=== PATIENT | female | born 1940 | race Caucasian/White ===

== ENCOUNTER 2016-07-14 12:55 | Outpatient (CLI) | payer MEDICARE | END 2016-07-14 12:56 | disposition home or self-care (01) | DX: M81.0 Age-related osteoporosis without current pathological fracture (principal) ==

== ENCOUNTER 2016-09-15 14:27 | Outpatient (CLI) | payer MEDICARE | END 2016-09-15 14:28 | disposition home or self-care (01) | LOC: RT.S 14:27 | PROVIDERS: ATTEND Family Medicine | DX: I25.10 Atherosclerotic heart disease of native coronary artery without angina pectoris (principal) | CPT/HCPCS: 93005 ==

== ENCOUNTER 2016-12-23 13:13 | Outpatient (CLI) | payer MEDICARE ==
--- NOTE | 2016-12-23 15:20 | XRAY Report ---
CHEST TWO VIEWS: 12/23/2016 CLINICAL HISTORY: Difficulty breathing. COMPARISON: 02/10/2015. FINDINGS: The heart size is normal. The lungs are clear. No pleural fluid or pneumothorax. Negative bony structures for age. The two tiny nodules seen on the prior chest CT are not appreciated on plain film. IMPRESSION: NEGATIVE TWO VIEW CHEST. JOB #: [id number] EXT JOB #:[id number]
== END 2016-12-23 13:14 | disposition home or self-care (01) ==
LOC: DI.S 13:13
PROVIDERS: ATTEND Family Medicine
DX: J44.9 Chronic obstructive pulmonary disease, unspecified (principal)
CPT/HCPCS: 71020

== ENCOUNTER 2017-04-26 10:20 | Outpatient (CLI) | payer MEDICARE ==
[2017-04-26 18:16] LABS: ALBUMIN 4.2 g/dL (3.2-5.5); ALBUMIN/GLOBULIN RATIO 1.3 (1.0-2.2); ALKALINE PHOSPHATASE 59 IU/L (42-121); ALT ALANINE AMINOTRANSFERASE 21 IU/L (10-60); AST ASPARTATE AMINOTRANSFERASE 27 IU/L (10-42); BILIRUBIN,TOTAL 0.7 mg/dL (0.2-1.0); BUN - BLOOD UREA NITROGEN 17 mg/dL (6-20); CALCIUM 8.9 mg/dL (8.5-10.3); CARBON DIOXIDE - CO2 26 mmol/L (21-32); CHLORIDE 104 mmol/L (101-111); CHOL/HDL RATIO 3.1 (<4.4); CHOLESTEROL 126 mg/dL; CREATININE 0.9 mg/dL (0.4-1.0); GFR - MDRD 61 (>89); GLUCOSE 100 mg/dL (70-100); HDL CHOLESTEROL 41 mg/dL; LDL CHOLESTEROL,CALCULATED 58 mg/dL; LDL/HDL RATIO 1.4 (<4.4); SODIUM 137 mmol/L (135-145); TOTAL PROTEIN 7.4 g/dL (6.7-8.2); VLDL CHOLESTEROL 27 mg/dL
== END 2017-04-26 10:21 | disposition home or self-care (01) ==
LOC: LAB.F 10:20
PROVIDERS: ATTEND Family Medicine
DX: I25.10 Atherosclerotic heart disease of native coronary artery without angina pectoris (principal); I10 Essential (primary) hypertension; I50.9 Heart failure, unspecified; E55.9 Vitamin D deficiency, unspecified; E78.5 Hyperlipidemia, unspecified
CPT/HCPCS: 36415; 80053; 80061; 82306; 83721

== ENCOUNTER 2017-06-16 12:22 | Outpatient (CLI) | payer MEDICARE ==
--- NOTE | 2017-06-16 15:24 | XRAY Report ---
LUMBAR SPINE: 06/16/2017 COMPARISON: Thoracic spine CT 02/10/2015. INDICATION: Lumbar back pain. TECHNIQUE: Three views. FINDINGS: There is mild lateral curvature of the lumbar spine. Stable finding. There is mild disk space narrowing at L1-L2. There is a large Schmorl's node of the superior endplate of L2. There are moderate osteophytes at that level. Minimal retrolisthesis of L1 upon L2 is favored to be degenerative. Alignment otherwise anatomic. No acute bone findings. There are moderate degenerative changes of lower facets. IMPRESSION: MILD TO MODERATE LUMBAR SPONDYLOSIS, WITH AN UNCHANGED APPEARANCE OF L2 HAVING A LARGE SUPERIOR ENDPLATE SCHMORL'S NODE AND ASSOCIATED MILD TO MODERATE DEGENERATIVE CHANGES AT L1-L2. TD: 06/16/2017 15:24 MTDD
== END 2017-06-16 12:23 | disposition home or self-care (01) ==
LOC: DI.S 12:22
PROVIDERS: ATTEND Nurse Practitioner Family
DX: M54.5 Low back pain (principal); M47.896 Other spondylosis, lumbar region; M51.46 Schmorl's nodes, lumbar region
CPT/HCPCS: 72100

== ENCOUNTER 2017-10-07 12:50 | Outpatient (CLI) | payer MEDICARE ==
--- NOTE | 2017-10-08 12:41 | MRI Report ---
Procedure Date: 10/07/2017 Accession Number: [id number] / [id number] Procedure: MRI - Lumbar Spine W/O CPT Code: FULL RESULT: EXAM: MRI LUMBAR SPINE WITHOUT CONTRAST EXAM DATE: 10/07/2017 01:59 PM. CLINICAL HISTORY: Back pain, lumbar. COMPARISON: 06/06/2017 lumbar spine radiographs. TECHNIQUE: Multiplanar, multisequence T1-weighted and fluid-sensitive sequences of the lumbar spine from T12 to S1 without contrast. Other: None. FINDINGS: Spinal Cord: The conus terminates at T12. The conus medullaris and cauda equina are unremarkable. Alignment: Anterolisthesis of L4 on L5 measures 3 mm. Sagittal alignment is otherwise anatomic. Lumbar levoscoliosis is incompletely evaluated on the director of philanthropy images. Bone Marrow: Five dzz-nzi-gobfgwn lumbar vertebral bodies are assumed. There is no evidence of acute fracture. Central depression of the superior endplate of L2 appears chronic and may reflect a large Schmorl's node or chronic superior endplate fracture. There is Modic type I endplate degenerative change at the anterior margin of T12-L1. There is an intraosseous hemangioma within the L3 vertebral body. Marrow signal is otherwise normal. Disk Levels/Facets: T12-L1: Disk desiccation without disk height loss. Shallow broad-based disk bulge. No spinal canal or foraminal stenosis. L1-L2: Disk desiccation without disk height loss. Shallow left foraminal disk protrusion results in mild left foraminal stenosis without spinal canal or right foraminal stenosis. L2-L3: Disk desiccation without disk height loss. A shallow broad-based disk bulge with superimposed left foraminal disk protrusion and moderate facet arthropathy results in narrowing of the lateral recesses and mild left foraminal stenosis. No spinal canal stenosis. L3-L4: Disk desiccation without disk height loss. A shallow broad-based disk bulge and severe bilateral facet arthropathy results in moderate spinal canal and bilateral foraminal stenosis. There is subchondral marrow edema and pericapsular edema at the bilateral facets. L4-L5: Disk desiccation without disk height loss. There is a broad-based disk bulge and severe facet arthropathy resulting in moderate spinal canal and bilateral foraminal stenosis. There is subchondral marrow edema and pericapsular edema at the bilateral facets, left greater than right. L5-S1: No disk bulge or protrusion. Moderate facet arthropathy. No spinal canal or foraminal stenosis. Musculature: Normal. No edema or fatty atrophy. Other: The partially visualized retroperitoneum is unremarkable. IMPRESSION: 1. Shallow broad-based disk bulges and severe facet arthropathy at L3-L4 and L4-L5 result in moderate spinal canal and bilateral foraminal stenosis. Facet arthropathy at these levels is also associated with subchondral marrow edema and pericapsular edema, left greater than right. 2. Shallow left foraminal disk protrusions at L1-L2 and L2-L3 result in mild left foraminal stenosis without spinal canal stenosis. Comment: The following findings are so common in adults without low back pain that while we report their presence, they must be interpreted with caution and in the context of the clinical situation. (Reference Marcelk et al, Spine 2001) Prevalence of findings in patients without low back pain: Disk degeneration (any evidence): 92% Disk desiccation/T2 signal loss: 83% Disk height loss: 56% Disk bulge: 64% Disk protrusion: 32% Annular tear/high intensity zone: 38% RADIA
== END 2017-10-07 12:51 | disposition home or self-care (01) ==
LOC: DI 12:50
PROVIDERS: ATTEND Family Medicine
DX: M51.26 Other intervertebral disc displacement, lumbar region (principal)
CPT/HCPCS: 72148

== ENCOUNTER 2018-04-16 08:00 | Outpatient (CLI) | payer MEDICARE ==
[2018-04-16 18:15] LABS: BASOPHILS % (AUTO) 0.2 %; EOSINOPHILS # (AUTO) 0.1 10^3/uL (0.0-0.7); EOSINOPHILS % (AUTO) 1.9 %; HGB - HEMOGLOBIN 13.4 g/dL (12.0-16.0); LYMPHOCYTES # (AUTO) 1.8 10^3/uL (1.5-3.5); LYMPHOCYTES % (AUTO) 35.3 %; MEAN CORPUSCULAR HEMOGLOBIN 29.2 pg (27.0-31.0); MEAN CORPUSCULAR HGB CONC 32.8 g/dL (32.0-36.0); MEAN CORPUSCULAR VOLUME 89.3 fL (81.0-99.0); MEAN PLATELET VOLUME 9.6 fL (7.9-10.8); MONOCYTES # (AUTO) 0.4 10^3/uL (0.0-1.0); MONOCYTES % (AUTO) 7.9 %; NEUTROPHILS # (AUTO) 2.8 10^3/uL (1.5-6.6); NEUTROPHILS % (AUTO) 54.7 %; PLT - PLATELET COUNT 288 10^3/uL (130-450); RED BLOOD COUNT 4.57 10^6/uL (4.20-5.40); RED CELL DISTRIBUTION WIDTH 13.2 % (12.0-15.0)
[2018-04-16 18:28] LABS: HB2 TOTAL 14.1 g/dL; HEMOGLOBIN A1C 0.52 g/dL; HEMOGLOBIN A1C % 5.5 % (4.6-6.2)
[2018-04-16 18:49] LABS: ALBUMIN 4.2 g/dL (3.2-5.5); ALBUMIN/GLOBULIN RATIO 1.4 (1.0-2.2); ALKALINE PHOSPHATASE 69 IU/L (42-121); ALT ALANINE AMINOTRANSFERASE 25 IU/L (10-60); AST ASPARTATE AMINOTRANSFERASE 27 IU/L (10-42); BILIRUBIN,TOTAL 0.8 mg/dL (0.2-1.0); BUN - BLOOD UREA NITROGEN 15 mg/dL (6-20); CALCIUM 9.1 mg/dL (8.5-10.3); CARBON DIOXIDE - CO2 26 mmol/L (21-32); CHLORIDE 103 mmol/L (101-111); CHOLESTEROL 132 mg/dL; CREATININE 0.8 mg/dL (0.4-1.0); GFR - MDRD 70 (>89); GLUCOSE 97 mg/dL (70-100); HDL CHOLESTEROL 44 mg/dL; LDL CHOLESTEROL,CALCULATED 67 mg/dL; LDL/HDL RATIO 1.5 (<4.4); SODIUM 140 mmol/L (135-145); TOTAL PROTEIN 7.1 g/dL (6.7-8.2); VLDL CHOLESTEROL 21 mg/dL
== END 2018-04-16 23:59 | disposition home or self-care (01) ==
LOC: LAB.S 08:00
PROVIDERS: ATTEND Nurse Practitioner
DX: Z13.9 Encounter for screening, unspecified (principal); J44.9 Chronic obstructive pulmonary disease, unspecified; M81.0 Age-related osteoporosis without current pathological fracture; I11.0 Hypertensive heart disease with heart failure; I50.9 Heart failure, unspecified; I25.10 Atherosclerotic heart disease of native coronary artery without angina pectoris
CPT/HCPCS: 36415; 80053; 80061; 83036; 83721; 84443; 85025

== ENCOUNTER 2018-08-13 08:00 | Outpatient (CLI) | payer MEDICARE | END 2018-08-13 23:59 | disposition home or self-care (01) | LOC: LAB.S 08:00 | PROVIDERS: ATTEND Nurse Practitioner | DX: F33.9 Major depressive disorder, recurrent, unspecified (principal) | CPT/HCPCS: 36415; 82306 ==

== ENCOUNTER 2018-08-16 13:07 | Outpatient (CLI) | payer MEDICARE ==
--- NOTE | 2018-08-17 08:12 | DEXA Report ---
Reason: ASYMPTOMATIC MENOPAUSAL STATE,OSTEOPOROSIS NOS Procedure Date: 08/16/2018 Accession Number: [id number] / [id number] Procedure: DEX - Dexa Spine and/or Hip CPT Code: FULL RESULT: EXAM: Dexa Spine and/or Hip DATE: 08/16/2018 1:51 PM CLINICAL HISTORY: ASYMPTOMATIC MENOPAUSAL State, osteoporosis NOS TECHNIQUE: Dual energy x-ray absorptiometry (DXA) was performed on a [employer] System. Regions measured are the AP Spine, femoral neck, and if needed forearm. COMPARISON: 07/14/2016. In accordance with the International Society for Clinical Densitometry (ISCD) guidelines, data from previous exams may be reanalyzed using current recommendations and techniques. This is done to allow a more accurate basis for comparison with the current study. FINDINGS: The data for the lumbar spine is as follows: BMD (g/cm/cm) T-SCORE Z-SCORE REGION L1 0.882 -2.1 -0.2 L2 0.847 -2.9 -1.1 L3 0.898 -2.5 -0.6 L4 1.159 -0.3 1.5 *excluded due to osteophytosis TOTAL L1-L3 0.876 -2.5 -0.6 NOTE: All evaluable vertebrae are used for classification The data for the hip is as follows: BMD (g/cm/cm) T-SCORE Z-SCORE REGION Neck 0.724 -2.3 -0.2 TOTAL 0.735 -2.2 -0.3 NOTE: The femoral neck or total proximal femur, whichever is lowest, is used for classification. DXA RESULTS SUMMARY: Spine SCAN DATE AGE BMD CHANGE VS CHANGE VS PREVIOUS PREVIOUS % 08/16/2018 78.4 0.876 -0.158* -16.0* 07/14/2016 76.3 1.034 * Denotes significant change at the 95% confidence level. Denotes dissimilar scan types or analysis methods. DXA RESULTS SUMMARY: Hip SCAN DATE AGE BMD CHANGE VS CHANGE VS PREVIOUS PREVIOUS % 08[age]16/2018 76.4 0.735 -0.005 -0.7 07/14/2016 76.3 0.740 * Denotes significant change at the 95% confidence level. Denotes dissimilar scan types or analysis methods. IMPRESSION: THE WHO CLASSIFICATION BASED ON THE INTERNATIONAL REFERENCE STANDARD IS OSTEOPOROSIS. THE FRACTURE RISK IS HIGH. RECOMMENDATION: Patients with diagnosis of osteoporosis or osteopenia should have regular bone mineral density assessment. For those eligible for Medicare, routine testing is allowed once every 2 years. Testing frequency can be increased for patients who have rapidly progressing disease or for those who are receiving medical therapy to restore bone mass. COMMENT: World Health Organization (WHO) definitions for osteoporosis and osteopenia: NORMAL BMD: T-score at -1.0 or higher, fracture risk is low OSTEOPENIA BMD: T-score between -1.0 and -2.5, fracture risk is increased. OSTEOPOROSIS BMD: T-score at -2.5 or lower, fracture risk is high. National Osteoporosis Foundation recommends: 1. Obtain adequate dietary calcium (at least 1200 mg per day) and vitamin D (400-800 international units per day). 2. Participate, as appropriate, in regular weightbearing and muscle-strengthening exercise. 3. Avoid tobacco use and reduce alcohol and caffeine intake. 4. For more detailed information see the website at www.NOF.org.
== END 2018-08-16 13:08 | disposition home or self-care (01) ==
LOC: DI 13:07
PROVIDERS: ATTEND Nurse Practitioner
DX: M81.0 Age-related osteoporosis without current pathological fracture (principal); Z78.0 Asymptomatic menopausal state
CPT/HCPCS: 77080

== ENCOUNTER 2019-03-25 08:00 | Outpatient (CLI) | payer MEDICARE | END 2019-03-25 23:59 | disposition home or self-care (01) | LOC: LAB.R 08:00 | PROVIDERS: ATTEND Registered Nurse | DX: J02.9 Acute pharyngitis, unspecified (principal); B37.9 Candidiasis, unspecified | CPT/HCPCS: 87070 ==

== ENCOUNTER 2019-08-01 11:30 | Outpatient (CLI) | payer MEDICARE ==
[2019-08-01 11:48] LABS: BASOPHILS % (AUTO) 0.2 %; EOSINOPHILS # (AUTO) 0.1 10^3/uL (0.0-0.7); HGB - HEMOGLOBIN 12.9 g/dL (12.0-16.0); LYMPHOCYTES # (AUTO) 1.3 10^3/uL (1.5-3.5); LYMPHOCYTES % (AUTO) 29.6 %; MEAN CORPUSCULAR HEMOGLOBIN 28.8 pg (27.0-31.0); MEAN CORPUSCULAR HGB CONC 31.9 g/dL (32.0-36.0); MEAN CORPUSCULAR VOLUME 90.4 fL (81.0-99.0); MONOCYTES # (AUTO) 0.4 10^3/uL (0.0-1.0); MONOCYTES % (AUTO) 8.6 %; NEUTROPHILS # (AUTO) 2.7 10^3/uL (1.5-6.6); NEUTROPHILS % (AUTO) 59.4 %; PLT - PLATELET COUNT 268 10^3/uL (130-450); RED BLOOD COUNT 4.48 10^6/uL (4.20-5.40); RED CELL DISTRIBUTION WIDTH 12.6 % (12.0-15.0); WHITE BLOOD COUNT 4.5 x10^3/uL (4.8-10.8)
[2019-08-01 12:05] LABS: ALBUMIN 4.2 g/dL (3.2-5.5); ALBUMIN/GLOBULIN RATIO 1.4 (1.0-2.2); ALKALINE PHOSPHATASE 55 IU/L (42-121); ALT ALANINE AMINOTRANSFERASE 18 IU/L (10-60); AST ASPARTATE AMINOTRANSFERASE 21 IU/L (10-42); BILIRUBIN,TOTAL 0.9 mg/dL (0.2-1.0); BUN - BLOOD UREA NITROGEN 15 mg/dL (6-20); CALCIUM 8.8 mg/dL (8.5-10.3); CARBON DIOXIDE - CO2 27 mmol/L (21-32); CHLORIDE 106 mmol/L (101-111); CHOL/HDL RATIO 3.2 (<4.4); CHOLESTEROL 129 mg/dL; GLUCOSE 106 mg/dL (70-100); HB2 TOTAL 13.9 g/dL; HDL CHOLESTEROL 40 mg/dL; HEMOGLOBIN A1C 0.56 g/dL; HEMOGLOBIN A1C % 5.8 % (4.6-6.2); LDL CHOLESTEROL,CALCULATED 68 mg/dL; LDL/HDL RATIO 1.7 (<4.4); SODIUM 140 mmol/L (135-145); TOTAL PROTEIN 7.1 g/dL (6.7-8.2); VLDL CHOLESTEROL 21 mg/dL
== END 2019-08-01 11:31 | disposition home or self-care (01) ==
LOC: LAB 11:30
PROVIDERS: ATTEND Registered Nurse
DX: E78.5 Hyperlipidemia, unspecified (principal); I50.9 Heart failure, unspecified; I11.0 Hypertensive heart disease with heart failure
CPT/HCPCS: 36415; 80053; 80061; 83036; 83721; 84443; 85025

== ENCOUNTER 2019-10-23 07:10 | Outpatient (CLI) | payer MEDICARE ==
--- NOTE | 2019-10-23 10:01 | Ultrasound Report ---
PROCEDURE: Abdomen Complete INDICATIONS: ABD PAIN TECHNIQUE: Real-time scanning was performed of the abdominal and retroperitoneal organs, with image documentatio n. COMPARISON: None. FINDINGS: Liver: Liver is normal in size and mildly hyperechoic in echotexture. Gallbladder: The gallbladder contains single 1 cm mobile stone. The wall is normal at 2.1 mm. No mark cholecystic fluid or sonographic Castro sign. Biliary ducts: Intrahepatic bile ducts are non-dilated. Extrahepatic bile duct caliber measures 7.5 mm. Normal is 6-7 mm or less in diameter, or 10 mm or less post-cholecystectomy. Pancreas: Visualized portions of the pancreas are sonographically normal. Spleen: Spleen is normal in size and homogeneous in echotexture. Kidneys: Kidneys are normal in size and echotexture. Right kidney measures 9.4 cm long; left kidney measures 10.7 cm long. 9 mm right lateral cortical cyst present. No hydronephrosis or nephrolithias is. No solid masses. Aorta: Visualized aorta is normal in caliber at less than 3 cm. Mild luminal irregularities secondar y to atherosclerosis. Iliacs: Proximal common iliac arteries are normal in caliber at less than 2.5 cm. IVC: Intrahepatic inferior vena cava is patent. Miscellaneous: No free abdominal fluid. IMPRESSION: 1. Cholelithiasis. 2. Minor hepatic steatosis or other intrinsic liver disease. Reviewed by: Annie Lisa MD on 10/23/2019 9:59 AM PDT Approved by: Annie Lisa MD on 10/23/2019 9:59 AM PDT Station ID: [id number]
--- NOTE | 2019-10-23 17:41 | XRAY Report ---
PROCEDURE: Chest 2 View X-Ray INDICATIONS: LUNG NODULE,BACK PAIN,THORACIC REGION TECHNIQUE: 2 view(s) of the chest. COMPARISON: 2 view chest x-ray 10/22/2016. CT chest 02/10/2015 FINDINGS: Surgical changes and devices: None. Lungs and pleura: No pleural effusions or pneumothorax. Lungs are clear. Previously identified nodu les in the right lower lobe are not identified by plain from radiograph. Mediastinum: Mediastinal contours are normal. Heart size is normal. Bones and chest wall: No suspicious bony abnormalities. Soft tissues appear unremarkable. IMPRESSION: 1. No acute cardiopulmonary disease process. 2. Previously identified right lower lobe pulmonary nodules not identified. Consider CT scan for furt her evaluation. Reviewed by: Sada Hernadez MD, PhD on 10/23/2019 5:40 PM PDT Approved by: Sada Hernadez MD, PhD on 10/23/2019 5:40 PM PDT Station ID: [id number]
--- NOTE | 2019-10-23 17:43 | XRAY Report ---
PROCEDURE: Thoracic Spine 3 View INDICATIONS: LUNG NODULE,BACK PAIN,THORACIC REGION TECHNIQUE: 3 views of the thoracic spine were acquired. COMPARISON: None. FINDINGS: Bones: No fractures or dislocations. No suspicious bony lesions. 12 pairs of ribs are noted, and a ppear intact where visualized. S-shaped scoliosis of the thoracolumbar spine is noted with convex rig ht thoracic spine curvature. Moderate degenerative changes noted throughout the thoracic spine. Soft tissues: No paravertebral stripe thickening. IMPRESSION: 1. Moderate multilevel degenerative disc disease. 2. S-shaped scoliosis. 3. No fracture. No acute osseous lesion. If there is continued clinical concern for pathology, then M RI should be considered for further evaluation. Reviewed by: Sada Hernadez MD, PhD on 10/23/2019 5:41 PM PDT Approved by: Sada Hernadez MD, PhD on 10/23/2019 5:41 PM PDT Station ID: [id number]
== END 2019-10-23 07:11 | disposition home or self-care (01) ==
LOC: DI 07:10
PROVIDERS: ATTEND Family Medicine
DX: R91.8 Other nonspecific abnormal finding of lung field (principal); M51.34 Other intervertebral disc degeneration, thoracic region; K80.20 Calculus of gallbladder without cholecystitis without obstruction; K76.0 Fatty (change of) liver, not elsewhere classified
CPT/HCPCS: 71046; 72072; 76700

== ENCOUNTER 2019-11-22 13:22 | Outpatient (CLI) | payer MEDICARE | END 2019-11-22 13:23 | disposition home or self-care (01) | LOC: COV 13:22 | PROVIDERS: ATTEND Surgery | DX: Z01.818 Encounter for other preprocedural examination (principal); K80.20 Calculus of gallbladder without cholecystitis without obstruction; Z20.828 Contact with and (suspected) exposure to other viral communicable diseases ==

== ENCOUNTER 2019-11-26 07:43 | Day surgery (SDC) | payer MEDICARE ==
[2019-11-26] MEDS ORDERED: LACTATED RINGERS 1,000 ML IV ONE ×2 (07:48→10:40)
[2019-11-26] MEDS ORDERED: CEFAZOLIN SODIUM IN 0.9 % NACL 2 GM/100 ML BAG IV ONE (07:55)
--- NOTE | 2019-11-26 08:24 | ANESTHESIA ---
Pre-Anesthesia VS, & Labs - Diagnosis Cholelithiasis - Procedure Cholecystectomy Vital Signs: Temp Pulse Resp BP Pulse Ox 36.4 C L 85 18 156/68 H 99 11/26/19 08:03 11/26/19 08:03 11/26/19 08:03 11/26/19 08:03 11/26/19 08:03 Height 5 ft 5 in Weight (kg) 64.2 kg Body Mass Index 24.6 - Is Patient ?: No Home Medications and Allergies Home Medications: Ambulatory Orders ALPRAZolam [Alprazolam] 0.25 mg PO Q4HR PRN 11/20/19 Alendronate Sodium 70 mg PO OAW 11/20/19 Aspirin [Aspirin EC] 81 mg PO DAILY 11/20/19 Calcium Carbonate [Elemental Calcium] 600 mg PO BID 11/20/19 Cholecalciferol (Vitamin D3) [Vitamin D3] 50 mcg PO BID 11/20/19 Escitalopram [Lexapro] 20 mg PO DAILY 11/20/19 Losartan Potassium 25 mg PO DAILY 11/20/19 NIFEdipine [Nifedipine ER] 60 mg PO DAILY 11/20/19 Rosuvastatin Calcium 10 mg PO QPM 11/20/19 ALPRAZolam [Alprazolam] 0.25 mg PO Q4HR PRN 11/20/19 Alendronate Sodium 70 mg PO OAW 11/20/19 Aspirin [Aspirin EC] 81 mg PO DAILY 11/20/19 Calcium Carbonate [Elemental Calcium] 600 mg PO BID 11/20/19 Cholecalciferol (Vitamin D3) [Vitamin D3] 50 mcg PO BID 11/20/19 Escitalopram [Lexapro] 20 mg PO DAILY 11/20/19 Losartan Potassium 25 mg PO DAILY 11/20/19 NIFEdipine [Nifedipine ER] 60 mg PO DAILY 11/20/19 Rosuvastatin Calcium 10 mg PO QPM 11/20/19 Allergies/Adverse Reactions: Allergies Allergy/AdvReac Type Severity Reaction Status Date / Time Penicillins Allergy Rash Verified 11/20/19 10:42 Anes History & Medical History - Anesthetic History Anesthesia Complications: reports: No previous complications Family history of Anesthesia Complications: Denies Family history of Malignant Hyperthermia: Denies - Medical History Cardiovascular: reports: Hypertension, High cholesterol, Coronary artery disease Pulmonary: reports: None Gastrointestinal: reports: None Urinary: reports: Frequency Neuro: reports: None Musculoskeletal: reports: Osteoarthritis, Scoliosis, Chronic back pain Endocrine/Autoimmune: reports: None Skin: reports: None - Surgical History General: Other Cardiothoracic: Coronary stent, Cardiac catheterization Urologic: Bladder surgery Gynecologic: Hysterectomy Exam General: Alert, Oriented x3, Cooperative, No acute distress Dental: Dentures full Upper, Partials Lower Mouth Opening: Greater than 4 Fingerbreadths Neck Mobility: Normal Mallampati classification: II Thyromental Distance: 4-6 cm Respiratory: Lungs clear, Normal breath sounds, No respiratory distress Cardiovascular: Regular rate, Normal S1, Normal S2, No murmurs Mental/Cognitive Status: Alert/Oriented X3, Normal for patient Plan Anesthesia Type: General Consent for Procedure(s) Verified and Reviewed: Yes Code Status: Attempt Resuscitation ASA classification: 3-Severe systemic disease Is this case an emergency?: No
[2019-11-26] MEDS ORDERED: ONDANSETRON 4 MG/2 ML VIAL IVP PRN ×2 (08:27→10:57)
[2019-11-26] MEDS ORDERED: NALOXONE 0.4 MG/ML VIAL IVP PRN (08:27)
[2019-11-26] MEDS ORDERED: HYDROmorphone 0.5 MG/0.5 ML SYRINGE IVP PRN (08:27)
[2019-11-26] MEDS ORDERED: fentaNYL 100 MCG/2 ML VIAL IVP PRN (08:27)
[2019-11-26] MEDS ORDERED: ATROPINE ABBOJECT 1 MG/10 ML SYRINGE IVP PRN (08:27)
[2019-11-26] MEDS ORDERED: ePHEDrine 50 MG/ML VIAL IVP PRN (08:27)
[2019-11-26] MEDS ORDERED: LACTATED RINGERS 1,000 ML IV SCH (09:00)
[2019-11-26] MEDS ORDERED: BUPIVACAINE 0.25% PF 30 ML VIAL ONE (09:01)
[2019-11-26] MEDS ORDERED: ROCURONIUM 50 MG/5 ML VIAL IVP ONE (09:15)
[2019-11-26] MEDS ORDERED: ONDANSETRON 4 MG/2 ML VIAL IVP ONE (09:15)
[2019-11-26] MEDS ORDERED: MIDAZOLAM 2 MG/2 ML VIAL IVP ONE (09:15)
[2019-11-26] MEDS ORDERED: PROPOFOL 200 MG/20 ML VIAL IVP ONE (09:15)
[2019-11-26] MEDS ORDERED: DEXAMETHASONE 4 MG/ML VIAL IVP ONE (09:15)
[2019-11-26] MEDS ORDERED: fentaNYL 100 MCG/2 ML VIAL IVP ONE (09:15)
[2019-11-26] MEDS ORDERED: LIDOCAINE-MPF 2% 5 ML VIAL IM ONE (09:15)
[2019-11-26] MEDS ORDERED: PHENYLEPHRINE 10 MG/ML VIAL IV ONE (09:15)
[2019-11-26] MEDS ORDERED: BUPIVACAINE 0.25% PF 30 ML VIAL SUBQ ONE (09:48)
[2019-11-26] MEDS ORDERED: SUGAMMADEX 200 MG/2 ML VIAL IVP ONE (10:15)
[2019-11-26] MEDS ORDERED: HYDROcod/ACETAM 5/325 MG TABLET PO PRN (10:57)
--- NOTE | 2019-11-26 12:14 | OPERATIVE REPORT ---
DATE OF SERVICE: 11/26/2019 Physician: Mayco Dow MD PREOPERATIVE DIAGNOSIS: Chronic cholecystitis. POSTOPERATIVE DIAGNOSIS: Chronic cholecystitis. PROCEDURE PERFORMED: Laparoscopic cholecystectomy. SURGEON: Mayco Dow MD [employer] ATTACHER: None. ANESTHESIA 1. General endotracheal anesthesia. 2. Local anesthesia with Marcaine. COMPLICATIONS: None. SPECIMEN: Gallbladder. ESTIMATED BLOOD LOSS: None. FINDINGS: Normal diameter common hepatic duct, which was easily evident without dissection. Healthy appearing liver. Hepatic flexure colon extends over the dome of the liver DRAINS: None. SPECIMENS: Gallbladder. COMPLICATIONS: None. INDICATIONS FOR PROCEDURE: Patient is an active 79-year-old lady with classic chronic cholecystitis. She has a single 1 cm gallstone. She has not had signs or symptoms of choledocholithiasis. Risks discussed, and alternatives discussed. All questions answered and consent obtained. DESCRIPTION OF PROCEDURE: Patient was properly identified and brought to the operating room and placed in supine position. She voided prior to surgery. General endotracheal anesthesia was induced. Sequential compression devices were placed. She was prepped and draped in a sterile fashion, given preoperative antibiotics. Local anesthetic was given to incision areas. An infraumbilical incision was made. Dissection proceeded down to the fascia. The fascia was incised, lifted upwards and abdomen entered with the Veress needle. CO2 was insufflated to a pressure of 15. An 11 mm trocar followed by a 30- degree scope was placed. There was no evidence of injury from Veress needle or trocar placement. Under direct vision, two 5 mm trocars were placed in the right upper quadrant and a 10 mm trocar was placed in the epigastrium. Body of the gallbladder was retracted anterior. The infundibulum and Maggie's pouch area was released of its peritoneal type attachments. She had a very long anterior cystic artery. This was clipped at the gallbladder, x2, slightly proximal and sharply divided. The infundibulum was then retracted right lateral and caudad. The anterior cystic artery was further peeled away from the cystic duct. With [place] dissector and no use of cautery, a large bare cystic plate area or window was created. A posterior cystic artery was identified. The cystic duct was clipped at the gallbladder and x3 slightly proximal and sharply divided. The posterior cystic artery was clipped at the gallbladder and x2, slightly proximal and sharply divided. The gallbladder was mobilized off from the bed of the liver. There was scant spillage of bile; however, no spillage of stone material. Very small tubular structure towards the fundus of the gallbladder was clipped and divided with cautery. The gallbladder was placed in an EndoCatch bag and brought out. Hemostasis was assured. Clips were secured. The abdomen was thoroughly irrigated. Trocars were removed under direct vision and CO2 evacuated. Fascia at the infraumbilical site was closed with a running 0 Vicryl suture. Fascia at the epigastrium was closed with a [id number]-[id number] 0 Vicryl suture. Skin was closed with buried interrupted 4-0 Monocryl. Dressings were applied. She tolerated the procedure very well. TD: 11/26/2019 10:57 ANN MARIE
[2019-11-26 12:16] VITALS: BP 124/60
== END 2019-11-26 07:44 | disposition home or self-care (01) ==
LOC: SDS 07:43
PROVIDERS: ATTEND Surgery
PROC: 0FT44ZZ Resection of Gallbladder, Percutaneous Endoscopic Approach (ICD-10-PCS; principal; 2019-11-26 09:15)
DX: K80.10 Calculus of gallbladder with chronic cholecystitis without obstruction (principal); H91.92 Unspecified hearing loss, left ear; Z79.82 Long term (current) use of aspirin; Z87.891 Personal history of nicotine dependence; I10 Essential (primary) hypertension; E78.00 Pure hypercholesterolemia, unspecified; I25.10 Atherosclerotic heart disease of native coronary artery without angina pectoris; R35.0 Frequency of micturition; Z95.5 Presence of coronary angioplasty implant and graft
CPT/HCPCS: 47562; 93005; J0690; J7120

== ENCOUNTER 2020-02-10 11:50 | Outpatient (CLI) | payer MEDICARE ==
--- NOTE | 2020-02-10 15:59 | CT Report ---
PROCEDURE: Low Dose Lung Cancer Screen INDICATIONS: HISTORY OF SMOKING TECHNIQUE: Noncontrast low-dose 5 mm thick sections acquired from the pulmonary apices to the posterior costophr enic angles. 7 mm thick coronal and sagittal MIP reformats were then acquired. For radiation dose r eduction, the following was used: automated exposure control, adjustment of mA and/or kV according t o patient size. COMPARISON: 02/10/2015 FINDINGS: Image quality: Excellent. Lungs and pleura: There are 2 subpleural nodules in the right lateral lower lung (4/218, 4/227), whi ch were present on the prior study but appear to have increased slightly in size, though this is felt most likely due to changes in technique. The larger measures 7 mm and the smaller measures 4 mm. The re is a chronic nodule in the left lower lobe at a midlung level measuring 5 mm, stable size densitie s 4/169). There is a triangle or juxta fissural nodule associated with the right minor fissure consis tent with a lymph node. There is subpleural calcification anteriorly in the right middle lobe suggest freddy of a granuloma. No suspicious consolidations or pleural effusions. Mediastinum: Heart size is normal. Dense LAD calcification versus stent. No pericardial effusion. No mediastinal adenopathy by size criteria. Thoracic aorta and central pulmonary arteries are normal in size. Esophagus is normal in caliber. Very small hiatal hernia. Bones and chest wall: No suspicious bony lesions. No vertebral body compression fractures. No axil michaelle or supraclavicular adenopathy by size criteria. The thyroid is normal in size. Abdomen: The gallbladder surgically absent. Visualized upper abdomen solid organs and bowel loops ap pear normal in the absence of contrast. IMPRESSION: 1. There are 3 chronic nodules in the lungs. The largest is in the right lower lobe and has increased size compared to the prior study, now measuring 7 mm, previously 5.5 mm. While this may reflect gates ges in technique (decrease in volume averaging due to thin slice imaging), there may also be slow yanelis wth. Follow-up chest CT in one year is recommended to reassess nodule size. 2. Coronary artery disease. 3. Cholecystectomy. Reviewed by: Annie Lisa MD on 02/10/2020 3:57 PM PST Approved by: Annie Lisa MD on 02/10/2020 3:57 PM PST Station ID: [id number]
== END 2020-02-10 11:51 | disposition home or self-care (01) ==
LOC: DI 11:50
PROVIDERS: ATTEND Family Medicine
DX: Z12.2 Encounter for screening for malignant neoplasm of respiratory organs (principal); Z87.891 Personal history of nicotine dependence; R91.8 Other nonspecific abnormal finding of lung field; I25.10 Atherosclerotic heart disease of native coronary artery without angina pectoris